=== PATIENT | male | born 1970 | race Two or more races ===

== ENCOUNTER 2018-10-26 11:14 | Day surgery (SDC) | payer OTHER, MEDICAID ==
[~2018-10-26 11:14] MED LIST: BALANCED SALT SOLN 15 ML OPH IRRIG; CEFAZOLIN 2 GM/50 ML (PMX) 50 ML IVPB; ERYTHROMYCIN 1 GM OPH OINT OP; LIDOCAINE 4% (MPF) 5 ML INJ OPER; SOD CHLORIDE 0.9% 1,000 ML IV
[2018-10-26] MEDS: DICLOFENAC 0.1% 2.5 ML OPH OPER (12:00)
[2018-10-26] MEDS: TETRACAINE 0.5% 4 ML OPH RIGHT EYE (12:00)
[2018-10-26] MEDS: MOXIFLOXACIN 0.5% 3 ML OPH OPER (12:00)
[2018-10-26] MEDS ORDERED: LIDOCAINE 2% (MDV) 20 ML INJ (12:18)
[2018-10-26] MEDS ORDERED: TOBRAMYCIN/DEXAMETH 3.5 GM OPH OINT (12:18)
[2018-10-26] MEDS ORDERED: ALBUTEROL 0.083% (NEB) 2.5 MG/3 ML AMP HHN (12:30)
[2018-10-26] MEDS ORDERED: OXYCODONE/ACETAMINOPHEN (5/325) TAB PO (12:30)
[2018-10-26] MEDS ORDERED: hydrALAzine 20 MG INJ IV (12:30)
[2018-10-26] MEDS: LIDOCAINE 2% (MDV) 20 ML INJ INJ (12:30)
[2018-10-26] MEDS ORDERED: ACETAMINOPHEN 325 MG TAB PO (12:30)
[2018-10-26] MEDS: LIDOCAINE 1%/EPI (1:100,000) (MDV) 20 ML INJ (12:30)
[2018-10-26] MEDS ORDERED: FENTAnyl 50 MCG/ML VIAL IV (12:30)
[2018-10-26] MEDS ORDERED: DIPHENHYDRAMINE 50 MG INJ IV (12:30)
[2018-10-26] MEDS: BUPIVACAINE 0.75% (MPF) 10 ML INJ INJ (12:30)
[2018-10-26] MEDS ORDERED: ACETAMINOPHEN 500 MG TAB PO (12:30)
[2018-10-26] MEDS ORDERED: LABETALOL HCL 20MG INJ IV (12:30)
[2018-10-26] MEDS ORDERED: ONDANSETRON 4 MG INJ IV (12:30)
[2018-10-26] MEDS ORDERED: LIDOCAINE 2% (SDV) 5 ML INJ (12:36)
[2018-10-26] MEDS ORDERED: LIDOCAINE 1%/EPI (1:100,000) (MDV) 20 ML (12:36)
[2018-10-26] MEDS ORDERED: PROPOFOL 20 ML (12:37)
== END 2018-10-26 15:59 | disposition home or self-care (01) ==
LOC: SDS 11:14
DX: H11.001 Unspecified pterygium of right eye (principal); E78.5 Hyperlipidemia, unspecified
CPT/HCPCS: 65426